=== PATIENT | female | born 2005 | race Caucasian/White ===

== ENCOUNTER 2025-07-23 19:27 | Inpatient (IN) | payer BC, OTHER, SELFPAY ==
[2025-07-23] MEDS ORDERED: hydrALAZINE 20 MG/ML VIAL SLOW IVP PRN ×2 (20:39→21:55)
[2025-07-23] MEDS ORDERED: Ondansetron PF 4 MG/2 ML Vial IVP PRN (21:55)
[2025-07-23] MEDS ORDERED: Ibuprofen 800 MG TAB PO PRN (21:55)
[2025-07-23] MEDS ORDERED: Lidocaine 1% (PF) 30 ML VIAL SC PRN (21:55)
[2025-07-23] MEDS ORDERED: Carboprost 250 MCG/ML AMP IM PRN (21:55)
[2025-07-23] MEDS ORDERED: Acetaminophen 500 MG TAB PO PRN (21:55)
[2025-07-23] MEDS ORDERED: Diphenoxylate HCl/Atropine Tablet PO PRN ×2 (21:55)
[2025-07-23] MEDS ORDERED: Tranexamic Acid 1,000 MG/10 ML VIAL IVP PRN (21:55)
[2025-07-23] MEDS ORDERED: Oxytocin 30 units/NS 500 ML 500 ML IV SCH ×3 (22:00)
[2025-07-23 23:35] LABS: Hematocrit 37.9 % (34.9-44.5); Hemoglobin 13.1 g/dL (12.0-15.5); Mean Corpuscular Hemoglobin 33.3 pg (27.0-33.0); Mean Corpuscular Volume 96.4 fL (81.6-98.3); Platelet Count 179 10x3/uL (150-450); Red Blood Cell (RBC) Count 3.93 10x6/uL (3.90-5.03); White Blood Cell (WBC) Count 13.90 10x3/uL (3.5-10.5)
[2025-07-24 00:08] LABS: Syphilis Antibody Index 0.07 S/CO (<1.00 Non-Reactive)
[2025-07-24 00:10] LABS: Hep B Surf Ag - L&D Non-Reactive S/CO (NonReactive)
[2025-07-24 01:22] LABS: ALT (SGPT) 29 U/L (Less than 34); AST (SGOT) 24 U/L (11-34); Albumin 3.3 g/dL (3.1-4.5); Alkaline Phosphatase 133 U/L (40-110); Anion Gap 14 mmol/L (10-20); BUN (Urea Nitrogen) 12 mg/dL (7.0-18.7); Bilirubin, Total 0.3 mg/dL (0.3-1.2); Calc. Creatinine Clearance 0 mL/min (70-130); Calcium 8.9 mg/dL (7.8-10.44); Carbon Dioxide 22 mmol/L (22-29); Chloride 102 mmol/L (98-107); Globulin 3.2 g/dL (2.4-3.5); Glucose 106 mg/dL (70-105); Potassium 4.1 mmol/L (3.5-5.1); Sodium 134 mmol/L (136-145)
[2025-07-24] MEDS: Acetaminophen 500 MG TAB PO PRN (01:28)
[2025-07-24] MEDS: Methylergonovine 0.2 MG/ML VIAL IM PRN (01:38)
[2025-07-24 02:29] VITALS: BMI 26.9
[2025-07-24] MEDS ORDERED: Milk Of Magnesia 30 ML UDCUP PO PRN (02:29)
[2025-07-24] MEDS ORDERED: Bisacodyl 10 MG SUPP PR PRN (02:29)
[2025-07-24] MEDS ORDERED: Oxytocin 30 units/NS 500 ML 500 ML IV SCH (02:29)
[2025-07-24] MEDS ORDERED: Boostrix 0.5 ML (Tdap) VIAL (>/=7 yrs of age) IM ONE (02:29)
[2025-07-24] MEDS ORDERED: Benzocaine-Menthol 82.5 ML CAN TOP PRN (02:29)
[2025-07-24] MEDS ORDERED: hydrALAZINE 20 MG/ML VIAL SLOW IVP PRN (02:29)
[2025-07-24] MEDS ORDERED: HYDROcodone/Acetaminophen 10/325 mg Tablet PO PRN ×2 (02:42→02:46)
[2025-07-24] MEDS ORDERED: Acetaminophen 325 MG TAB PO PRN (02:47)
[2025-07-24] MEDS: Ibuprofen 800 MG TAB PO SCH (05:42)
[2025-07-24] MEDS: Ferrous Sulfate 325 MG TAB PO SCH (08:50)
[2025-07-25] MEDS: Oxytocin 30 units/NS 500 ML 500 ML ONE (07:29)
[2025-07-25 08:31] VITALS: BP 112/73; TEMP 97.9
== END 2025-07-25 18:00 | disposition home or self-care (01) | DRG 807 ==
LOC: CSHLD/OP 19:27 → CSHLD 22:18 → CSHPP 07-24 02:51
PROVIDERS: ADMIT Obstetrics & Gynecology; ATTEND Obstetrics & Gynecology
PROC: 10E0XZZ Delivery of Products of Conception, External Approach (ICD-10-PCS; principal; 2025-07-24)
DX: O80 Encounter for full-term uncomplicated delivery (principal); Z37.0 Single live birth; Z3A.39 39 weeks gestation of pregnancy
CPT/HCPCS: 36415; 80053; 85027; 86780; 86850; 86900; 86901; 87340; 99285; J2210